=== PATIENT | female | born 1990 | race Caucasian/White ===

== ENCOUNTER 2018-07-01 13:22 | Emergency (ER) | payer MEDICAID ==
[~2018-07-01] VITALS: Ht 172.7 cm; Wt 117.9 kg
[2018-07-01 13:37] VITALS: BP_SYST 120
--- NOTE | 2018-07-01 13:48 | NUR ---
Placed in room 03 . Placed on shelter monitor, blood pressure machine and pulse oximeter. To gown for exam. Side rails up. Report given to PATRICE ALEGRIA.
--- NOTE | 2018-07-01 14:07 | NUR ---
patient AOx4 coming from home. patient c/o abd discomfort since this weekend. patient states she had a salad this friday and has been feeling ill ever since. patient is from [place], recently , moving to the area. no other complaint or injury at this time.
[2018-07-01] MEDS ORDERED: NACL 0.9% 1,000 ML IV ONE (14:17)
--- NOTE | 2018-07-01 14:20 | NUR ---
ER at bedside examining patient.
[2018-07-01 14:28] LABS: BILIRUBIN,URINE NEGATIVE (NEGATIVE); BLOOD, URINE 1+ (NEGATIVE); COLOR,URINE YELLOW (YELLOW); GLUCOSE,URINE NEGATIVE (NEGATIVE); KETONES,URINE NEGATIVE (NEGATIVE); LEUKOCYTE ESTERASE ,URINE NEGATIVE (NEGATIVE); NITRITE, URINE NEGATIVE (NEGATIVE); PH,URINE 5.5 (5.0-8.0); PROTEIN URINE NEGATIVE (NEGATIVE); UROBILINOGEN,URINE 0.2 (0.2-1.0)
[2018-07-01] MEDS ORDERED: ONDANSETRON HCL 4 MG/2 ML VIAL IVP ONE (14:30)
[2018-07-01 14:39] LABS: CLARITY/URINE SLIGHTLY HAZY (CLEAR)
[2018-07-01 14:40] LABS: BACTERIA,URINE RARE /HPF (None Seen); MUCUS,URINE 1+ /LPF (None Seen); WBC,URINE 0-3 /HPF (0-3)
[2018-07-01 14:50] LABS: BASOPHILS % (AUTO) 0.4 % (0.0-2.0); MEAN CORPUSCULAR HGB CONC 36 % (32-36); MONOCYTES # (AUTO) 0.5 K/uL (0.0-1.0); WHITE BLOOD COUNT (AUTO) 7.9 K/uL (4.8-10.8)
[2018-07-01 14:53] LABS: EOSINOPHILS # (AUTO) 0.1 K/uL (0.0-0.4); EOSINOPHILS % (AUTO) 1.6 % (0.0-4.0); HEMATOCRIT 37.9 % (36-48); HEMOGLOBIN 13.5 g/dL (12.0-16.0); LYMPHOCYTES # (AUTO) 3.3 K/uL (1.0-5.5); LYMPHOCYTES % (AUTO) 41.3 % (20.5-51.5); MEAN CORPUSCULAR HEMOGLOBIN 30 pg (27-31); MEAN CORPUSCULAR VOLUME 85 fL (79.0-98.0); MONOCYTES % (AUTO) 5.8 % (1.7-9.3); NEUTROPHILS # (AUTO) 4.1 K/uL (1.8-7.7); NEUTROPHILS % (AUTO) 50.9 % (40.0-70.0); PLATELET COUNT (AUTO) 293 K/uL (130-430); RED BLOOD CELL COUNT(AUTO) 4.44 MIL/uL (4.2-6.2); RED CELL DISTRIBUTION WIDTH 12.5 % (9.0-15.0)
[2018-07-01 14:54] LABS: CALCIUM 9.4 mg/dL (8.4-11.0); CREATININE 0.77 mg/dL (0.55-1.30); POTASSIUM 4.1 mmol/L (3.5-5.1)
[2018-07-01 14:59] LABS: PROTHROMBIN TIME 10.1 SECS (9.5-12.5)
[2018-07-01] MEDS ORDERED: ONDANSETRON 4 MG ODT TAB PO ONE (15:00)
[2018-07-01 15:01] LABS: ALBUMIN 3.7 g/dL (3.4-4.8); TOTAL BILIRUBIN 0.7 mg/dL (0.0-1.0)
--- NOTE | 2018-07-01 15:30 | NUR ---
Patient given written and verbal discharge instructions and verbalizes understanding. ER MD discussed with patient the results and treatment provided. Patient in stable condition. ID arm band removed. Rx of Zofran given. Patient educated on pain management and to follow up with PMD. Pain Scale 0/10. Opportunity for questions provided and answered. Medication side effect fact sheet provided.
[2018-07-01 15:50] VITALS: BP_SYST 103
== END 2018-07-01 15:45 | disposition home or self-care (01) ==
LOC: SED 13:22
DX: R19.7 Diarrhea, unspecified (principal); R53.1 Weakness; R50.9 Fever, unspecified; E78.00 Pure hypercholesterolemia, unspecified; R03.0 Elevated blood-pressure reading, without diagnosis of hypertension
CPT/HCPCS: 36415; 80053; 81000; 81025; 83690; 85025; 85610; 99283; Q0162; J2405